=== PATIENT | male | born 1975 | race Caucasian/White ===

== ENCOUNTER → 2021-10-05 15:24 | Outpatient (CLI) | payer BC, SELFPAY ==
--- NOTE | 2021-10-05 15:30 | XR_ITS ---
PROCEDURE: XR FOOT WT BEARING LT 3V CLINICAL INDICATION: Pain COMPARISON: No exams were available for comparison FINDINGS: No fracture or dislocation. No lytic or blastic change. There is normal mineralization. The joint spaces are well-preserved. No significant degenerative/arthritic changes. No erosive changes evident. Borderline pes planus IMPRESSION: Borderline pes planus otherwise negative Dictated by: Fabio Mendez MD 10/05/2021 16:24 Fabio Mendez MD in [place] 10/05/2021 16:24
--- NOTE | 2021-10-05 15:30 | XR_ITS ---
PROCEDURE: XR FOOT WT BEARING RT 3V CLINICAL INDICATION: pain COMPARISON: CR XR FOOT WT BEARING LT 3V from 10/05/2021 FINDINGS: No fracture or dislocation. No lytic or blastic change. There is normal mineralization. The joint spaces are well-preserved. No significant degenerative/arthritic changes. No erosive changes evident. Mild prominence of the posterior talar process IMPRESSION: Mild prominence of the posterior talar process otherwise negative Dictated by: Fabio Mendez MD 10/05/2021 16:25 Fabio Mendez MD in [place] 10/05/2021 16:25
== END ==
PROVIDERS: PCP Family Medicine; Visit Provider Podiatrist
DX: M79.671 Pain in right foot (principal); M79.672 Pain in left foot
CPT/HCPCS: 73630